=== PATIENT | male | born 2005 | race Caucasian/White ===

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

== ENCOUNTER → 2023-08-14 09:13 | Outpatient (BNVA) | payer MEDICAID, SELFPAY | PROVIDERS: PCP Registered Nurse; Referring Provider Registered Nurse; Visit Provider Physician Assistant | DX: M79.641 Pain in right hand (principal); M79.642 Pain in left hand | CPT/HCPCS: 73130 ==

== ENCOUNTER → 2023-10-09 08:18 | Outpatient (BNVA) | payer MEDICAID, SELFPAY | PROVIDERS: PCP Registered Nurse; Visit Provider Physician Assistant | DX: G56.01 Carpal tunnel syndrome, right upper limb; R29.898 Other symptoms and signs involving the musculoskeletal system; G56.21 Lesion of ulnar nerve, right upper limb | CPT/HCPCS: 99203 ==

== ENCOUNTER 2023-11-17 07:15 | Outpatient (CLI) | payer MEDICAID, SELFPAY ==
--- NOTE | 2023-11-17 07:15 | MR_ITS ---
WS: [id number] MRI OF THE RIGHT HAND WITHOUT GADOLINIUM ENHANCEMENT. INDICATION: Pain in palm of hand TECHNIQUE: Axial T1, axial T2, coronal T1, coronal STIR, sagittal T2 fat-sat, coronal 3D FSPGR FINDINGS: Normal anatomic alignment. Normal bone marrow signal in the carpal bones and metacarpals. N o acute fractures. Normal extensor retinaculum and extensor compartment tendons. There is volar bowing of the flexor retinaculum which can be seen with carpal tunnel syndrome. In ad dition, increased signal in the median nerve also compatible with carpal tunnel syndrome. Trace flexo r tenosynovitis. Small amount of flexor tendinopathy. Flattening of the median nerve at the entrance and exit of the carpal tunnel. Abductor pollicis brevis is normal in appearance. CSA median nerve at the level of the pisiform approximately 16.73 sq mm compatible with carpal tunnel syndrome MR/MR hand RT wo con* [id number] IMPRESSION: 1. Above findings suspicious for carpal tunnel syndrome. 2. Increased T2 signal normality involving the median nerve with mild flatteni ng at the level of the hamate. Palmar bowing of the flexor retinaculum with mil d flexor tenosynovitis and flexor tendinopathy. Visual crowding of the carpal t unnel. 3. CSA of the median nerve at the level of pisiform 16.73 sq mm compatible wit h carpal tunnel syndrome in the appropriate clinical setting
== END 2023-11-17 07:16 | disposition home or self-care (01) ==
LOC: RAD 07:15
PROVIDERS: PCP Registered Nurse; Visit Provider Physician Assistant
DX: M65.841 Other synovitis and tenosynovitis, right hand (principal); R29.898 Other symptoms and signs involving the musculoskeletal system; M77.8 Other enthesopathies, not elsewhere classified
CPT/HCPCS: 73218

== ENCOUNTER → 2023-12-31 13:13 | Outpatient (BNVA) | payer MEDICAID, SELFPAY | PROVIDERS: PCP Registered Nurse; Visit Provider Student in an Organized Health Care Education/Training Program | DX: G56.01 Carpal tunnel syndrome, right upper limb (principal) | CPT/HCPCS: 99214 ==

== ENCOUNTER 2024-02-17 10:32 | Day surgery (SDC) | payer BC, MEDICAID, SELFPAY ==
[2024-02-17] VITALS (9 sets, daily range): BP systolic 99–137; BP diastolic 58–74; PULSE 58–71; RESP 12–19; TEMP 36.1–36.8; O2SAT 91–100; BMI 33.0
--- NOTE | 2024-02-17 11:25 | ANES.PREANE2 ---
Pre-Anesthetic Assessment Height/Weight: Height 5 ft 10 in Weight 230 lb Temp Pulse Resp BP Pulse Ox O2 Del Method 97.5 F L 62 18 137/74 100 Room Air 02/17/24 11:16 02/17/24 11:16 02/17/24 11:16 02/17/24 11:16 02/17/24 11:16 02/17/24 11:16 Operation Date: 02/17/24 12:15 Proposed Procedures p Carpal Tunnel Release Carpal Tunnel Release With Synovial Biopsy(Right) - Ron Reed DO Last intake: Intake Last Liquid Date 02/16/24 Last Liquid Time 23:45 Last Solid Date 02/16/24 Last Solid Time 23:45 Social Tobacco and No alcohol Exam alert, oriented x 3, clear to auscultation bilaterally and regular rate & rhythm Airway Submandibular: within normal limits Cervical ROM: within normal limits Mallampati: Class II Dentition: full Anesthetic Plan ASA status: 2 Anesthesia: MAC Other: No prior issues with anesthesia, prior T&A as a child NPO since midnight Current smoker Allergy to penicillin Patient denies any cardiac issues METs greater than 4 Plan for MAC anesthetic with local via surgeon Medications/Allergies Home Medications Medication Instructions Recorded Confirmed Last Taken Type ondansetron 4 mg disintegrating 4 mg PO Q8H PRN nausea and 02/17/24 Unknown Rx tablet vomiting 3 days #9 tabs tramadol 50 mg tablet 50 mg PO Q6H PRN pain #20 tabs 02/17/24 Unknown Rx Allergies Allergy/AdvReac Type Severity Reaction Status Date / Time penicillin G Allergy UNKNOWN Verified 12/31/23 13:18 PFSH Anesthesia Medical History Right ureteral stone Family History Mother Kidney stones Cancer CERVICAL Grandfather Kidney stones Cancer COLON,ESOPHAGEAL Social History Smoking and tobacco/nicotine status: current every day tobacco/nicotine user (VAPE) e-cigarettes E-Cigarette Details: vaporizer device Alcohol intake: current Alcohol intake frequency: few times a month Substance/Drug Use: never Current gender identity: Male Data Anesthesia Cardiac Studies: No Data to Display
--- NOTE | 2024-02-17 11:43 | P.HP_ITS ---
Same Day Surgery H&P Indication for Procedure/HPI DATE OF PROCEDURE: February 17, 2024 CHIEF COMPLAINT/INDICATIONFOR SURGICAL PROCEDURE: Right carpal tunnel syndrome PREOP DIAGNOSIS: Right carpal tunnel syndrome PLANNED PROCEDURE: Operation Date: 02/17/24 12:15 Proposed Procedures p Carpal Tunnel Release Carpal Tunnel Release With Synovial Biopsy(Right) - Ron Reed DO Medications/Allergies* Allergies/Adverse Reactions Allergy/AdvReac Type Severity Reaction Status Date / Time penicillin G Allergy UNKNOWN Verified 12/31/23 13:18 Pertinent History/Comorbid Conditions* Medical History (Updated 10/09/23 @ 09:22 by SHEILA Desouza) Right ureteral stone Family History (Updated 04/15/21 @ 09:55 by CASIE Baldwin) Kidney stones Mother Grandfather Cancer Mother CERVICAL Grandfather COLON,ESOPHAGEAL Social History Smoking and tobacco/nicotine status: current every day tobacco/nicotine user (VAPE) e-cigarettes E-Cigarette Details: vaporizer device Alcohol intake: current Alcohol intake frequency: few times a month Substance/Drug Use: never Current gender identity: Male Pertinent Exam Findings alert, oriented x 3, operative site marked and procedure specific exam findings Please refer to detailed orthopedic examination on 12/25/2023 Bilateral Hand exam-tenderness to palm and thenar region of hand. Positive median nerve compression test at the wrist positive Tinel's and positive Phalen's test. Mild thenar weakness, no thenar atrophy. Full range of motion in fingers and wrist and fingers are warm and well-perfused with normal cap refill under 2 seconds. Radial pulse 2+, No intrinsic atrophy noted. All patient's exam findings are more significant on the right side. Bilateral Elbow exam-mildly Positive Tinel's test and Positive elbow flexion test. Recommendations Surgery/Procedure today Other Plans: Plan to proceed to the OR today for right carpal tunnel release with synovial biopsy Patient understands the ins and outs procedure risk benefits complication alternatives to surgery. Once again we did review continued nonoperative versus operative intervention as well as discussed roles of cortisone injection but at this point time through shared decision making with patient as well as with mother would like to proceed with a right carpal tunnel release as he does have findings consistent with this on examination as well as his MRI findings as well. They would like a more permanent relief of symptomatology given his young age I will go ahead and perform a synovial biopsy of the carpal tunnel in order to hopefully rule out any further causes of carpal tunnel in such a younger pa tient. They understand agree with current plan. Questions answered. Will proceed with right carpal tunnel release with synovial biopsy today. Coding Level of Care Code Acute Code for Zoeg Fwjill
[2024-02-17] MEDS: acetaminophen 1,000 MG/100 ML PIGGYBACK 400 MG IV (11:50)
[2024-02-17] MEDS: scopolamine 1.5 Patch 1 PATCH TRANSDERMA (11:52)
[2024-02-17] MEDS: ketorolac 30 mg/mL INJ IVP (11:52)
[2024-02-17] MEDS: sodium chloride 0.9% 1,000 ML 30 ML IV (11:56)
[2024-02-17] MEDS: clindamycin 900 MG/50 ML PREMIX 100 MG IV (12:00)
[2024-02-17] MEDS: lidocaine-epi 1% PF 1:200,000 30 mL SDV 5 ML INJECTION (12:40)
[2024-02-17] MEDS: ROPivacaine 0.5% SDV 30 mL 25 MG INJECTION (12:40)
--- NOTE | 2024-02-17 12:41 | W.PM.BPON ---
Date of Procedure: 02/17/2024 Surgeon: Ron Reed DO Nursing Executive(s): Robson Reed PA-C Procedure(s) performed: Right carpal tunnel release with synovial biopsy Findings of the procedure(s): Patient was found to have right carpal tunnel syndrome with inflamed tenosynovium. Given his young age I did undergo a synovial biopsy with a small piece of the transverse carpal ligament as well as of tenosynovium along one of the flexor tendon sheaths. This was sent for pathology permanent specimen as well as should be sent for a Congo red stain to rule out possible amyloidosis Estimated blood loss: 2 mL Specimen(s) removed: Synovial biopsy of the carpal tunnel contents including a piece of transverse carpal ligament as well as tenosynovium along one of the flexor tendon sheath Post-operative diagnosis: Right carpal tunnel syndrome
--- NOTE | 2024-02-17 12:43 | PM.OP ---
Operative Report Date of procedure: February 17, 2024 Surgeon: Ron Reed DO Pulling Machine Operator: Robson Reed PA-C: PA was necessary for assistance in this case with hand positioning to execute the procedure, retraction and protection of neurovascular structures as well as to assist with wound closure and dressing application. Procedure: Preop Diagnosis: Right Carpal Tunnel Syndrome Post-op diagnosis: Same Procedure done: 1. Right carpal tunnel release Surgeon: Ron Reed DO Anesthesia: MAC (Local) Estimated blood loss: 2 mL Tourniquet time 19 minutes Specimens: I did excise and perform a tenosynovectomy of one of the flexor tendon sheaths within the carpal tunnel as well as took an excision of the transverse carpal ligament and sent for pathology for definitive specimen as well as for Congo red staining for amyloidosis IV fluids: See anesthesia record Complications: None Findings: See operative report narrative Condition: stable Disposition: same day Brief History: Patient is a pleasant 18 year-old male with right carpal tunnel syndrome. Patient has been worked up in the outpatient setting findings and physical examination consistent with this. Nerve conduction studies have been negative he did have an MRI which confirmed crowding of the carpal tunnel and consistent findings of carpal tunnel with this. We detailed out his treatment options in detail and at this point time given he has been struggling this for quite some time patient mother would like to pursue surgical intervention to have the carpal tunnel release. I did express with his young age this is definitely a more uncommon diagnosis at his age but he does have classic exam findings as a result we talked about getting synovial biopsy while performing the right carpal tunnel release and they agree to proceed with this. We detailed out patient's risk benefits complication alternatives with surgical and nonsurgical treatment options. Through shared decision making, patient agrees to proceed with surgical intervention of the right carpal tunnel release with synovial biopsy. Patient understands and agrees with current plan. All questions answered. Patient elects to proceed with surgical intervention. Procedure: Patient seen and evaluated in the preoperative holding area. Consent was reviewed and signed with patient. Correct extremity was marked. Patient was seen evaluated by the anesthesia department once cleared for surgery was brought back to the operative suite. Patient was kept on [facility] in supine position all bony prominences were well-padded patient properly secured to the bed. Right upper extremity was then placed onto an armboard. A nonsterile tourniquet was applied to the Right upper arm. Patient underwent anesthesia per the anesthesia department. Patient's Right upper extremity was then prepped and draped in standard orthopedic fashion. Final timeout performed. Patient received appropriate preoperative antibiotics. Under sterile aseptic technique patient received local anesthesia over the preplanned carpal tunnel incision site. Esmarch was used to exsanguinate the Right upper extremity and tourniquet was insufflated to 250 mmHg. A standard mini open Right carpal tunnel incision was made. Starting distally at Gutierrez's cardinal line in line with the fourth ray extending proximally distal to the wrist crease centered over the carpal tunnel. Sharp scalpel incision was made through skin and subcutaneous tissue. Self-retaining retractor was placed and the palmar fascia was identified. This was then split longitudinally and direct visualization of the transverse carpal ligament was then made. I then utilizing scalpel feathered through the transverse carpal ligament until I entered the floor of the transverse carpal tunnel ligament into the carpal tunnel. Next I switched to dissection scissors and completed my release of the transverse carpal ligament distally with care to protect the recurrent motor branch. I completely released into the palmar fat and until no entrapment was noted distally. Care was made to protect the superficial palmar arch during my distal dissection. Next I utilized a nasal speculum placed on top of the transverse carpal ligament and utilize this to retract the subcutaneous fat and tissue and under direct loupe magnification was able to identify the transverse carpal ligament. Next I then protected the contents of the carpal tunnel and subsequently utilizing dissection scissors under loupe magnification completely released the transverse carpal ligament proximally into the antebrachial fascia. Care was made to protect the palmar cutaneous branch by keeping my scissors curved ulnarly. Once completely released, I then placed my [place] and had appropriate decompression of the carpal tunnel proximally as well as distally. I then inspected the contents of the carpal tunnel which showed an hourglass shape of the median nerve showing its compression. No masses were noted. Tendons appeared healthy. At this point I then subsequently performed the synovial biopsy and mobilized the median nerve radially and subsequently performed a tenosynovectomy of one of the flexor tendon to have appropriate synovial specimen and then subsequently the radial leaflet of the transverse carpal ligament I cut a small piece of this out and sent this as well for a synovial biopsy of the carpal tunnel. This will to be sent for the for formal specimen as well as Congo red staining ruling out possibility of amyloidosis. This was then sent off the back table to path. Wound was then thoroughly irrigated. Tourniquet deflated. Hemostasis satisfactory with bipolar electrocautery. I then closed the incision with interrupted nylon stitches. Xeroform 4 x 4's and a bulky soft dressing was applied. Patient was then awakened from anesthesia and taken to PACU in stable condition. Patient tolerated procedure without complications. Disposition: Patient taken to PACU in stable condition recovering well. Dressing clean dry and intact. Patient will receive appropriate discharge instructions as well as pain medication postoperatively. Patient to follow-up with orthopedics in the office in 2 weeks. They understand they may be weightbearing as tolerated to the right hand. Patient should keep incision clean dry and intact. Patient understands if any questions or concerns may contact the office.
--- NOTE | 2024-02-17 12:51 | P.PCN_ITS ---
PACU note Narrative: Patient is a 18-year-old male just underwent a right carpal tunnel release. Patient transferred to PACU in stable condition. Pain is well controlled. Dressing on hand is dry and in place. Patient's fingers are warm and well- perfused. Patient can wiggle fingers. normal cap refill under 2 seconds. Patient has normal elbow range of motion. Unable to assess sensation due to residual localized anesthetic. Exam: awake Disposition: discharged
[2024-02-17] MEDS: TRAMadol 50 mg Tablet PO (13:24)
--- NOTE | 2024-02-17 13:52 | ANE.PACU2 ---
Inpatient post-anesthesia follow up: Airway intact: Yes Vital signs: Temperature 97 F Pulse Rate 68 Respiratory Rate 18 Blood Pressure 106/61 Pulse Oximetry 94 Oxygen Delivery Me thod Room Air Oxygen Flow Rate Fraction of Inspir ed Oxygen Hydration adequate: Yes Nausea and vomiting: No Pain level: 1 Mental status: Baseline
== END 2024-02-17 13:52 | disposition home or self-care (01) ==
PROVIDERS: PCP Registered Nurse; Visit Provider Student in an Organized Health Care Education/Training Program
PROC: (CPT 64721; principal; 2024-02-17 12:05)
DX: G56.01 Carpal tunnel syndrome, right upper limb (principal); F17.200 Nicotine dependence, unspecified, uncomplicated
CPT/HCPCS: 64721; 88313; J0131; J1885; J2250; J2704; J2795; J3010; J3490; J7030

== ENCOUNTER → 2024-03-04 12:11 | Outpatient (BNVA) | payer BC, MEDICAID, SELFPAY | PROVIDERS: PCP Registered Nurse; Visit Provider Registered Nurse | DX: E11.9 Type 2 diabetes mellitus without complications (principal); H53.9 Unspecified visual disturbance; H57.051 Tonic pupil, right eye | CPT/HCPCS: 80053; 83036; 85025 ==

== ENCOUNTER 2024-03-08 13:55 | Outpatient (RCR) | payer BC, MEDICAID, SELFPAY | END 2024-03-14 23:59 | disposition home or self-care (01) | LOC: SOT 13:55 | PROVIDERS: PCP Registered Nurse; Visit Provider Physician Assistant | DX: G56.00 Carpal tunnel syndrome, unspecified upper limb (principal) | CPT/HCPCS: 97110; 97165; 97530 ==

== ENCOUNTER 2024-03-11 07:00 | Outpatient (CLI) | payer BC, MEDICAID, SELFPAY ==
--- NOTE | 2024-03-11 07:00 | CT_ITS ---
WS: [id number] CT HEAD TECHNIQUE: Noncontrast CT of the head obtained from the skullbase to the vertex. CLINICAL INFORMATION: H53.9 - Unspecified visual disturbance COMPARISON: None. DLP: 1125.[address] scans at [facility] use at least one of these dose optimization techniques: automated e xposure control; mA and/or kV adjustment per patient size (includes targeted exams where dose is matc hed to clinical indication); or iterative reconstruction. FINDINGS: No evidence of intracranial hemorrhage or mass effect. Ventricular system and basal cisterns are hernandez nt. No extra-axial fluid collections. No evidence of mass or mass effect. Normal [place]white different iation. 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 This could be follow ed up with MRI. Mild crowding of the foramen magnum. Fourth ventricle appears normal. No hydrocephalu s. Paranasal sinuses and mastoid air cells are well aerated. .Normal visualized soft tissues. CT/CT head wo con* [id number] IMPRESSION: 1. No evidence of intracranial hemorrhage or mass effect. 2. 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 Th is can be followed up with MRI. No hydrocephalus. 3. Otherwise no acute intracranial findings.
== END 2024-03-11 07:01 | disposition home or self-care (01) ==
PROVIDERS: PCP Registered Nurse; Visit Provider Registered Nurse
DX: Q07.00 Arnold-Chiari syndrome without spina bifida or hydrocephalus (principal); H53.9 Unspecified visual disturbance; H57.051 Tonic pupil, right eye
CPT/HCPCS: 70450

== ENCOUNTER 2024-05-19 05:54 | Day surgery (SDC) | payer BC, MEDICAID, SELFPAY ==
[2024-05-19] VITALS (13 sets, daily range): BP systolic 129–166; BP diastolic 75–114; PULSE 62–90; RESP 16–20; TEMP 36.3–36.4; O2SAT 92–98
[2024-05-19] MEDS: sodium chloride 0.9% 1,000 ML 30 ML IV (06:13)
[2024-05-19] MEDS: ketorolac 30 mg/mL INJ IVP (06:17)
[2024-05-19] MEDS: acetaminophen 1,000 MG/100 ML PIGGYBACK 400 MG IV (06:17)
[2024-05-19] MEDS: scopolamine 1.5 Patch 1 PATCH TRANSDERMA (06:19)
--- NOTE | 2024-05-19 06:30 | ANES.PREANE2 ---
Pre-Anesthetic Assessment Height/Weight: Height 5 ft 10 in Weight 245 lb Temp Pulse Resp BP Pulse Ox O2 Del Method 97.5 F L 84 18 144/80 98 Room Air 05/19/24 06:03 05/19/24 06:03 05/19/24 06:03 05/19/24 06:03 05/19/24 06:03 05/19/24 06:03 Preop Diagnosis: Cubital tunnel syndrome Operation Date: 05/19/24 07:00 Proposed Procedures p Cubital Tunnel Release(Right) - Ron Reed DO s Ulnar Nerve Transposition(Right) - Ron Sawantatt, DO Was Beta Lorraine taken within 24 hours: N/A Was Clonidine taken within 24 hours: N/A Last intake: Intake Last Liquid Date 05/18/24 Last Liquid Time 22:00 Last Solid Date 05/18/24 Last Solid Time 18:00 Social Tobacco and No alcohol Exam alert, oriented x 3, clear to auscultation bilaterally and regular rate & rhythm Airway Submandibular: within normal limits Cervical ROM: within normal limits Mallampati: Class I Dentition: full Comments: Comments: Rodriguez Anesthetic Plan ASA status: 2 Anesthesia: General Other: No prior issues with anesthesia NPO since yesterday Current smoker Denies any cardiac issues. 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 Currently asymptomatic, needs to follow up with neurology METs greater than 4 Plan for general anesthesia with preop nerve block Medications/Allergies Home Medications Medication Instructions Recorded Confirmed Last Taken Type naproxen sodium 220 mg tablet 220 mg PO Q12H PRN Pain 05/18/24 05/19/24 05/18/24 History (Aleve) Allergies Allergy/AdvReac Type Severity Reaction Status Date / Time penicillin G Allergy UNKNOWN Verified 04/15/24 08:33 Current Medications Generic Name Dose Route Start Last Admin Trade Name Freq PRN Reason Stop Dose Admin Sodium Chloride 1,000 mls @ 30 mls/hr 05/19/24 06:00 05/19/24 06:13 Sodium Chloride 0.9% IV 05/20/24 05:59 30 mls/hr .Q24H LOUISA Administration PFSH Anesthesia Medical History Right ureteral stone Family History Mother Kidney stones Cancer CERVICAL Grandfather Kidney stones Cancer COLON,ESOPHAGEAL Social History Smoking and tobacco/nicotine status: current every day tobacco/nicotine user (VAPE) e-cigarettes E-Cigarette Details: vaporizer device Alcohol intake: current Alcohol intake frequency: few times a month Substance/Drug Use: never Current gender identity: Male Data Anesthesia Cardiac Studies: No Data to Display
--- NOTE | 2024-05-19 06:55 | ANES.PROC ---
Anesthesia Procedures Procedure/Date: 05/19/24 Nerve Block ^: Nerve Block 1: Main Anesthesia: other (100 mcg fentanyl, 2 mg Versed given) Time Out Performed: Yes Consent: requested by attending/covering physician and from patient Nerve block location: supraclavicular Anesthesia monitors applied: pulse oximetry, EKG, BP cuff and oxygen Nerve block position: supine Anesthetic Used: ropivicaine 0.5% Amount of anesthesia used (mL): 30 Nerve Stimulator Used?: Yes Interscalene/Femoral BLK: other needle (pjunk 4inch) Injection: neg aspiration of heme Patient Tolerated Procedure: well Complications: none
--- NOTE | 2024-05-19 06:56 | W.PM.OPSFHP ---
Same Day Surgery H&P Indication for Procedure/HPI DATE OF PROCEDURE: May 19, 2024 CHIEF COMPLAINT/INDICATIONFOR SURGICAL PROCEDURE: Right cubital tunnel syndrome PREOP DIAGNOSIS: Right cubital tunnel syndrome PLANNED PROCEDURE: Operation Date: 05/19/24 07:00 Proposed Procedures p Cubital Tunnel Release(Right) - Ron Derek, DO s Ulnar Nerve Transposition(Right) - Ron Derek, DO Medications/Allergies* Home Medications Medication Instructions Recorded Confirmed Type naproxen sodium 220 mg tablet 220 mg PO Q12H PRN Pain 05/18/24 05/19/24 History (Aleve) Allergies/Adverse Reactions Allergy/AdvReac Type Severity Reaction Status Date / Time penicillin G Allergy UNKNOWN Verified 04/15/24 08:33 Current Medications: Generic Name Dose Route Start Last Admin Trade Name Freq PRN Reason Stop Dose Admin Sodium Chloride 1,000 mls @ 30 mls/hr 05/19/24 06:00 05/19/24 06:13 Sodium Chloride 0.9% IV 05/20/24 05:59 30 mls/hr .Q24H LOUISA Administration Pertinent History/Comorbid Conditions* Medical History (Updated 03/20/24 @ 17:12 by CARLOTA Lopez) Right ureteral stone Family History (Updated 04/15/21 @ 09:55 by CASIE Baldwin) Kidney stones Mother Grandfather Cancer Mother CERVICAL Grandfather COLON,ESOPHAGEAL Social History Smoking and tobacco/nicotine status: current every day tobacco/nicotine user (VAPE) e-cigarettes E-Cigarette Details: vaporizer device Alcohol intake: current Alcohol intake frequency: few times a month Substance/Drug Use: never Current gender identity: Male Pertinent Exam Findings alert, oriented x 3, operative site marked and procedure specific exam findings Please refer to detailed orthopedic examination on 04/15/2024 patient had received regional block to the right upper extremity today.: Right hand?surgical incision site is healing well no signs of infection noted. Scar present. No erythema, warmth or swelling noted. Full range of motion in fingers and wrist and fingers are warm and well-perfused with normal cap refill under 2 seconds. Radial pulse 2+, Right Elbow exam-mildly Positive Tinel's test and Positive elbow flexion test. Recommendations Surgery/Procedure today Other Plans: Plan to proceed to the OR today for right cubital tunnel release with possible nerve transposition. Patient understands the ins and outs of procedure the risk benefits complication alternatives surgery and through shared decision-making elects proceed with surgical intervention. All questions answered at this time. Coding Level of Care Code Acute Code for Chg Fwd
[2024-05-19] MEDS: clindamycin 900 MG/50 ML PREMIX 100 MG IV (07:02)
--- NOTE | 2024-05-19 08:02 | W.PM.BPON ---
Date of Procedure: 05/19/2024 Surgeon: Ron Reed DO Career And Guidance Counselor(s): None Procedure(s) performed: Right cubital tunnel release Findings of the procedure(s): Patient found to have right cubital tunnel syndrome underwent procedure as planned without issues or complications Estimated blood loss: 5 mL Specimen(s) removed: None Post-operative diagnosis: Right cubital tunnel syndrome
--- NOTE | 2024-05-19 08:03 | PM.OP ---
Operative Report Date of procedure: May 19, 2024 Surgeon: Ron Reed DO Procedure: Preop Dx Right Cubital Tunnel syndrome Post-op diagnosis:? 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 He has had nerve studies in the past was negative we started off with a right carpal tunnel release surgery and he had good relief of his symptoms but still has residual/even more magnified cubital tunnel symptoms in the outpatient setting. in the office patient findings are consistent with this preoperative diagnosis. We had detailed discussion in office about continued nonoperative intervention versus operative intervention.? Patient understands the risk benefits complications alternatives to surgical and nonsurgical treatment options.? Patient understands the risks include but not limited to make it better, make it worse, infection, permanent injury to nerve, decreased function and sensation to the hand with persistent weakness.? Given these risks patient understands and agrees to proceed with current plan.? Patient elects to proceed with a right?cubital?tunnel release and possible ulnar nerve transposition. all questions answered. Procedure: Patient was seen and evaluated in the preoperative holding area.? The consent that was filled out in office was reviewed with patient and confirmed to be appropriate for right ulnar nerve?cubital?tunnel release and possible ulnar nerve transposition.? Correct extremity was then marked.? Patient was seen evaluated by the preoperative team as well as anesthesia department.? Once cleared for surgery patient was then taken to the operative suite and transported onto the operative table all bony prominences were well-padded and patient was secured to the table.? Right upper extremity was placed on an armboard.? Patient then underwent anesthesia per the anesthesia department. The right upper extremity tourniquet was applied. Patient's right upper extremity was then prepped and draped in standard orthopedic fashion.? This point a final timeout was performed. Patient received appropriate preop antibiotics. Esmarch tourniquet was used to exsanguinate the operative extremity and was insufflated to 250 mmHg.? Standard curvilinear incision was made centering over the ulnar nerve between the medial epicondyle and olecranon process.? Sharp scalpel excision through skin and subcutaneous tissue was performed.? Once I encountered subcutaneous tissue I then utilized dissection scissors to spread in the path of the [facility] and care was made to protect any nerve branches throughout this case.? I then utilized a scalpel to complete my dissection directly on over to the flexor pronator mass and elevated this fat tissue directly off of the fascia.? I started my dissection of the ulnar nerve the nerve proximally.? Once identified I then utilized Littler dissection scissors and decompress the nerve completely and proximally and utilized blunt dissection to make sure there was no entrapment proximally.? Once decompressed proximally I then traced the nerve distal through Beck's ligament and as it entered the FCU fascia aponeurosis and completed by decompression and ulnar nerve neurolysis distally.? The nerve was completely released in situ no areas of entrapment I was able to place my finger distally and proximally with no areas entrapment along the nerve.? At this point in time by in situ release was completed I then subsequently took the elbow through range of motion and no evidence of subluxation was noted. This completed my ulnar nerve decompression of the?cubital?tunnel. Wound bed was then thoroughly irrigated.? Tourniquet was deflated.? Maintained exact hemostasis with bipolar electrocautery.? As result the skin was reapproximated with interrupted Vicryl subcutaneous suture 3-0.? I next utilized a running horizontal mattress stitch with 3-0 nylon.? Extremity was then cleaned and the incision was then covered with Xeroform 4 x 4's ABD Curlex and soft roll and a bulky soft dressing with an Ry wrap.? Patient was then awakened from anesthesia and taken to PACU in stable condition. Disposition: Patient taken to PACU in stable condition.? Patient given appropriate discharge instructions as well as pain medication.? Patient will see ortho in office in 2 weeks.? pt understands? if they has any questions they can contact the office.
[2024-05-19] MEDS: fentaNYL 50 mcg/mL INJ 2mL IVP (08:30)
[2024-05-19] MEDS: TRAMadol 50 mg Tablet PO (09:08)
--- NOTE | 2024-05-19 09:30 | ANE.PACU2 ---
Inpatient post-anesthesia follow up: Airway intact: Yes Vital signs: Temperature 97.4 F Pulse Rate 75 Respiratory Rate 20 Blood Pressure 166/103 Pulse Oximetry 96 Oxygen Delivery Me thod Room Air Oxygen Flow Rate Fraction of Inspir ed Oxygen Hydration adequate: Yes Nausea and vomiting: No Pain level: 3 Mental status: Baseline
== END 2024-05-19 09:30 | disposition home or self-care (01) ==
PROVIDERS: PCP Registered Nurse; Visit Provider Student in an Organized Health Care Education/Training Program
PROC: (CPT 64718; principal; 2024-05-19 07:00)
DX: G56.21 Lesion of ulnar nerve, right upper limb (principal); F17.200 Nicotine dependence, unspecified, uncomplicated
CPT/HCPCS: 64718; J0131; J1100; J1885; J2405; J2704; J3010; J3490; J7030

== ENCOUNTER → 2024-07-15 09:57 | Outpatient (BNVA) | payer BC, MEDICAID, SELFPAY | PROVIDERS: PCP Registered Nurse; Visit Provider Physician Assistant | DX: M25.522 Pain in left elbow (principal); G56.02 Carpal tunnel syndrome, left upper limb; G56.22 Lesion of ulnar nerve, left upper limb | CPT/HCPCS: 73080 ==

== ENCOUNTER 2024-08-05 15:56 | Outpatient (CLI) | payer BC, MEDICAID, SELFPAY ==
--- NOTE | 2024-08-05 16:00 | MR_ITS ---
WS: [id number] MRI HEAD WITHOUT CONTRAST TECHNIQUE: Sagittal T1, T2 axial, T2 axial FLAIR, axial and coronal T1 images, axial susceptibility weighted imaging, axial diffusion weighted images, and coronal T2 images were obtained. CLINICAL INFORMATION: G93.5 - Compression of brain COMPARISON: CT 03/11/2024 FINDINGS: No evidence of restricted diffusion to suggest acute ischemia. Ventricular system and basal cisterns are patent. Chiari I malformation with cerebellar tonsils approximately 3.3 mm below the foramen magnum. No hydrocephalus. Normal fourth ventricle. Mild crowding at the foramen magnum. Tiny perivascular space in the caudate likely incidental. No surrounding gliosis. No other suspicious intracranial signal abnormalities. Otherwise normal posterior fossa. Normal vascular flow voids at the skull base. No extra-axial fluid collections. No evidence of mass or mass effect. Paranasal sinuses are well aerated. Normal posterior nasopharynx. Mastoid air cells are well aerated. No hemosiderin on the susceptibility weighted images. Normal optic chiasm and pituitary infundibulum. Temporal lobes and hippocampal formations are normal in appearance. MR/MR head wo con* [id number] IMPRESSION: 1. No evidence of restricted diffusion to suggest acute ischemia. 2. Tiny perivascular space in the LEFT caudate likely incidental. 3. No other suspicious intracranial signal abnormalities. 4. Chiari I malformation with cerebellar tonsils 3.3 mm below the foramen magn um. No hydrocephalus. Normal fourth ventricle. MRI cervical spine could be obta ined on an elective basis to exclude syrinx in the setting of Chiari I malforma tion especially if clinical concern for symptomatic Chiari. 5. No hemosiderin on the susceptibly weighted images. 6. No other suspicious findings.
== END 2024-08-05 15:57 | disposition home or self-care (01) ==
PROVIDERS: PCP Registered Nurse; Visit Provider Registered Nurse
DX: G93.5 Compression of brain (principal); R93.0 Abnormal findings on diagnostic imaging of skull and head, not elsewhere classified
CPT/HCPCS: 70551

== ENCOUNTER 2024-08-18 06:55 | Day surgery (SDC) | payer BC, MEDICAID, SELFPAY ==
[2024-08-18] VITALS (11 sets, daily range): BP systolic 108–177; BP diastolic 71–90; PULSE 58–72; RESP 16–18; TEMP 36.1–36.9; O2SAT 95–99; BMI 35.9
--- NOTE | 2024-08-18 07:55 | W.PM.OPSFHP ---
Same Day Surgery H&P Indication for Procedure/HPI DATE OF PROCEDURE: August 18, 2024 CHIEF COMPLAINT/INDICATIONFOR SURGICAL PROCEDURE: Left carpal tunnel syndrome, left cubital tunnel syndrome PREOP DIAGNOSIS: Left Carpal Tunnel syndrome, left cubital tunnel syndrome PLANNED PROCEDURE: Operation Date: 08/18/24 09:00 Proposed Procedures p Carpal Tunnel Release(Left) - Ron Derek, DO s Cubital Tunnel Release(Left) - Ron Derek, DO s Ulnar Nerve Transposition(Left) - Ron Derek, DO Medications/Allergies* Home Medications ?Medication ?Instructions ?Recorded ?Confirmed ?Type ascorbic acid (vitamin C) 500 mg 500 mg PO DAILY 08/17/24 08/17/24 History tablet (Vitamin C) Allergies/Adverse Reactions Allergy/AdvReac Type Severity Reaction Status Date / Time penicillin G Allergy UNKNOWN Verified 07/15/24 09:45 Pertinent History/Comorbid Conditions* Medical History (Updated 07/15/24 @ 11:19 by SHEILA Desouza) Right ureteral stone Family History (Updated 04/15/21 @ 09:55 by CASIE Baldwin) Kidney stones Mother Grandfather Cancer Mother CERVICAL Grandfather COLON,ESOPHAGEAL Social History Smoking and tobacco/nicotine status: current every day tobacco/nicotine user (VAPE) e-cigarettes E-Cigarette Details: vaporizer device Alcohol intake: current Alcohol intake frequency: few times a month Substance/Drug Use: never Current gender identity: Male Pertinent Exam Findings alert, oriented x 3, operative site marked and procedure specific exam findings Please refer to detailed orthopedic examination on 07/15/2024 listed below: Left Hand exam-positive Tinel's and positive Phalen's test. no thenar atrophy and mild thenar muscle weakness noted. Full range of motion in fingers and wrist and fingers are warm and well-perfused with normal cap refill under 2 seconds. Radial pulse 2+, intrinsic muscle weakness noted. Left Elbow exam-PositiveTinel's test and Positive elbow flexion test. Recommendations Surgery/Procedure today Other Plans: Plan to proceed to the OR today for left carpal tunnel release, left cubital tunnel release with possible nerve transposition. Patient understands the ins and outs procedure the risk benefits complication alternatives to surgery and through shared decision make elects proceed with surgical invention. All questions answered at this time. Patient is already had the right carpal done on the right cubital release done and is done extremely well and satisfied with his results this and ready to proceed with the left side patient understands agrees to current plan. Questions answered. Coding Level of Care Code Acute Code for Chg Yuridia
[2024-08-18] MEDS: acetaminophen 1,000 MG/100 ML PIGGYBACK 400 MG IV (08:08)
[2024-08-18] MEDS: sodium chloride 0.9% 1,000 ML 30 ML IV (08:09)
[2024-08-18] MEDS: scopolamine 1 mg PATCH 1 PATCH TRANSDERMA (08:28)
[2024-08-18] MEDS: ketorolac 30 mg/mL INJ IVP (08:33)
--- NOTE | 2024-08-18 08:36 | ANES.PREANE2 ---
Pre-Anesthetic Assessment Height/Weight: Height 1.78 m Weight 113.398 kg Temp Pulse Resp BP Pulse Ox O2 Del Method 98.5 F 64 16 124/72 97 Room Air 08/18/24 07:33 08/18/24 08:15 08/18/24 08:15 08/18/24 08:15 08/18/24 08:15 08/18/24 08:15 Preop Diagnosis: Left Carpal Tunnel syndrome, left cubital tunnel syndrome Operation Date: 08/18/24 09:00 Proposed Procedures p Carpal Tunnel Release(Left) - Ron Derek, DO s Cubital Tunnel Release(Left) - Ron Leslie, DO s Ulnar Nerve Transposition(Left) - Ron Derek, DO Familial anesthetic complications: No Was Beta Lorraine taken within 24 hours: N/A Was Clonidine taken within 24 hours: N/A Last intake: Intake Last Liquid Date 08/17/24 Last Liquid Time 22:30 Last Solid Date 08/17/24 Last Solid Time 18:00 Social No alcohol and No tobacco Exam alert, oriented x 3, clear to auscultation bilaterally and regular rate & rhythm Airway Mallampati: Class III Metabolic Morbid Obesity Neuropsych Chiari I malformation - remains asymptomatic. Did well with previous anesthesia in May Anesthetic Plan ASA status: 3 Anesthesia: General and Regional (specify below) Risk of > 500 ml blood loss (7ml/kg in children): No Medications/Allergies Home Medications ?Medication ?Instructions ?Recorded ?Confirmed ?Last Taken ?Type ascorbic acid (vitamin C) 500 mg 500 mg PO DAILY 08/17/24 08/17/24 08/17/24 History tablet (Vitamin C) Allergies Allergy/AdvReac Type Severity Reaction Status Date / Time penicillin G Allergy UNKNOWN Verified 07/15/24 09:45 Current Medications Generic Name Dose Route Start Last Admin Trade Name Freq PRN Reason Stop Dose Admin Sodium Chloride 1,000 mls @ 30 mls/hr 08/18/24 07:15 08/18/24 08:09 Sodium Chloride 0.9% IV 08/19/24 07:14 30 mls/hr .Q24H LOUISA Administration Scopolamine 1 patch 08/18/24 07:12 08/18/24 08:28 Scopolamine 1 Mg Patch TRANSDERMA 1 patch ONCE PRN Administration anesthetic related nausea PFSH Anesthesia Medical History Right ureteral stone Family History Mother Kidney stones Cancer CERVICAL Grandfather Kidney stones Cancer COLON,ESOPHAGEAL Social History Smoking and tobacco/nicotine status: current every day tobacco/nicotine user (VAPE) e-cigarettes E-Cigarette Details: vaporizer device Alcohol intake: current Alcohol intake frequency: few times a month Substance/Drug Use: never Current gender identity: Male Data Anesthesia Cardiac Studies: No Data to Display
--- NOTE | 2024-08-18 08:39 | ANES.PROC ---
Anesthesia Procedures Procedure/Date: 08/18/24 Nerve Block ^: Nerve Block 1: Main Anesthesia: general anesthesia Time Out Performed: Yes Consent: requested by attending/covering physician, from patient, from other, risks and benefits reviewed, patient agrees to proceed and emergency procedure Nerve block location: supraclavicular (L) Anesthesia monitors applied: pulse oximetry, EKG, BP cuff and oxygen Nerve block position: semi sitting Anesthetic Used: ropivicaine 0.5% (30 ml) and with decadron ( 4 mg) Ultrasound used to: recognize landmarks, visualize and ID brachial plexus and in supraclavicular region Nerve Stimulator Used?: No Interscalene/Femoral BLK: 4 stimuplex 21 g needle used for position and inplane approach, visualize local anesthetic spread and no vascular puncture identified Injection: neg aspiration of heme Patient Tolerated Procedure: well Complications: none
--- NOTE | 2024-08-18 08:40 | SUR.PREOP ---
08:20 left super clavicular nerve block performed by doctor Santillan, using 30mL of 0.5% ropivacaine. PT on engine monitor during showing NSR. PT tolerated procedure well.
[2024-08-18] MEDS: clindamycin 900 MG/50 ML PREMIX 100 MG IV (08:41)
--- NOTE | 2024-08-18 09:50 | P.OP_ITS ---
Operative Report Date of procedure: August 18, 2024 Surgeon: Ron Reed DO Procedure: Preoperative diagnosis: Left carpal tunnel syndrome, left cubital tunnel syndrome Postop Diagnosis: Same Procedure done: Left carpal tunnel release Left?cubital?tunnel tunnel release (ulnar nerve decompression at elbow) Surgeon: Ron Reed DO Estimated blood loss: 10 mL Tourniquet? 19 minutes IV fluids: 500 mL Complications: None Findings: See operative report narrative Condition: stable Disposition: same day Brief History: Patient's been seen and worked up in the outpatient setting and findings c onsistent with preoperative diagnosis.? Patient has Left carpal tunnel syndrome as well as Left?cubital?tunnel syndrome which has been worked up in the outpatient setting has physical exam findings consistent with this. Patient's had negative nerve conduction studies and subsequently after failed conservative treatment we talked about his options and with patient and mother and they had originally elected to proceed with a right carpal tunnel release as well as then a cubital tunnel release and he had great relief of his symptoms we did perform tenosynovial biopsy on the initial which was negative for any amyloidosis. At this point in time he is failed conservative treatment for the left side and he would like to proceed with a left carpal tunnel release and left cubital tunnel release with possible nerve transposition. As result through shared decision making agreed to proceed with? Left carpal tunnel and Left?cubital?tunnel release we talked about treatment options as far as nonoperative and operative intervention.? Understands risk benefits complication alternatives surgical nonsurgical treatment options.? Understanding his risks he agrees to proceed with surgical intervention. Understanding these risks he agrees to proceed with surgery.? Consent obtained in preop. Procedure: Patient seen evaluate in the preoperative holding area.? Consent was reviewed and signed with patient.? Correct extremity marked.? Patient seen evaluated by anesthesia department once cleared for surgery was then taken back to the operative suite placed in supine position all bony prominences well-padded patient properly secured to bed.? Left upper extremity placed onto armboard.? Nonsterile tourniquet applied Left upper arm.? Patient then underwent anesthesia per the anesthesia department.? Patient's Left upper extremity was then prepped and draped in standard orthopedic fashion.? Final timeout performed.? Patient received appropriate preoperative antibiotics. Esmarch was used exsanguinate the Left upper extremity.? Tourniquet was insufflated to 250 mmHg. I started with the carpal tunnel release first.? I made a standard open carpal tunnel release starting with the distal most extent in the palm at the Gutierrez's cardinal line and the incision line was made in line with the fourth ray and ended just distal to the wrist crease.? Sharp scalpel incision was made through skin and subcutaneous tissue I then utilizing self retainer then began to dissect with dissection scissors split longitudinally the palmar fascia.? Next I then utilizing my acute care nursing assistant Mariam retractors subsequently utilizing scalpel feathered through the palmaris brevis as well as through the transverse carpal ligament distally.? Once I encountered the floor of the transverse carpal ligament and entered into the carpal tunnel I then switched to dissection scissors.? Carefully released the distal extent of the transverse carpal ligament to the palmar fat.? Care was to protect the recurrent branch and not injured this during this part of the case.? Next I then placed a [place] underneath the transverse carpal ligament proximally to protect the nerve in the carpal tunnel contents.? And then I subsequently under loupe magnification utilize my dissection scissors to release the transverse carpal ligament into the antebrachial fascia under direct visualization with care to keep my scissors with a curved ulnarly away from the palmar cutaneous branch.? The transverse carpal was then completely decompressed proximally and a [place] was then placed both distally and proximally throughout the carpal tunnel and had complete decompression of the nerve.? The nerve did appear to have hourglass shape as it went through the carpal tunnel.? With significant irritation noted around the nerve.? No masses were noted within the contents of the carpal tunnel.? This completed the carpal tunnel release and then I subsequently irrigated the wound bed and placed a wet Ray-Mega into the incision for later closure. Next marked out the landmarks of the Left elbow of the medial epicondyle and olecranon and made a curvilinear incision following the course of the ulnar nerve at the medial aspect of the elbow.? Sharp scalpel incision was made through skin and subcutaneous tissue.? Next I switched to Littler dissection scissors and spread in plane of the medial antebrachial cutaneous nerve branching which was protected throughout this part of the dissection.? Then I directly came down over the fascia and identified the 2 heads of the FCU fascia and split this Left in the middle and subsequently identified my ulnar nerve distally.? This was then completely released distally under direct visualization and loupe magnification.? Once the nerve was then identified I then subsequently tracked this proximally and released this through Beck's ligament as well as complete decompression of the nerve proximally all the way past the intermuscular septum.? The nerve was completely released and decompressed both proximally and distally.? Ulnar nerve neurolysis performed and completed both proximally and distally with dissection scissors.? I then took the elbow through range of motion and there was no instability or subluxating of the ulnar nerve.? This completed?cubital?tunnel release.? ?Next the wound bed was thoroughly irrigated.? Tourniquet was deflated.? Hemostasis was satisfactory at the?cubital?tunnel release surgery site. I then inspected the carpal tunnel incision and this was found to have satisfactory hemostasis and all this was maintained through bipolar electrocautery.? At this point time I sequentially closed?cubital?tunnel site with 3-0 Vicryl suture in a running horizontal mattress nylon stitch.? ? The carpal tunnel release surgery was then closed in standard interrupted mattress fashion.? Dressing was Xeroform 4 x 4's ABD Curlex soft roll and an Ry wrap has a bulky soft dressing. Patient was then awakened from anesthesia and taken to PACU in stable condition. Disposition: Patient taken to PACU in stable condition recovering well.? Patient will receive appropriate discharge instructions as well as pain medication postoperatively.? We will follow-up with me in the office in 2 weeks.? Patient understands agrees with current plan.? All questions answered.? He understands if any questions or concerns and contact the office for follow-up appointment..
--- NOTE | 2024-08-18 09:50 | W.PM.BPON ---
Date of Procedure: 08/18/2024 Surgeon: Ron Reed DO Combination Man(s): None Procedure(s) performed: Left carpal tunnel release Left cubital tunnel release Findings of the procedure(s): Patient found to have left carpal tunnel syndrome and left cubital tunnel syndrome underwent procedure as planned without issues or complications Estimated blood loss: 10 mL Specimen(s) removed: None Post-operative diagnosis: Left carpal tunnel syndrome, left cubital tunnel syndrome
[2024-08-18] MEDS: HYDROcodone-acetaminophen 5-325 mg Tablet 1 TAB PO (10:52)
--- NOTE | 2024-08-18 11:30 | ANE.PACU2 ---
Inpatient post-anesthesia follow up: Airway intact: Yes Vital signs: Temperature 97.0 F Pulse Rate 58 Respiratory Rate 17 Blood Pressure 131/79 Pulse Oximetry 98 Oxygen Delivery Me thod Room Air Oxygen Flow Rate 6 Fraction of Inspir ed Oxygen Hydration adequate: Yes Nausea and vomiting: No Pain level: 1 Mental status: Baseline
== END 2024-08-18 11:32 | disposition home or self-care (01) ==
PROVIDERS: PCP Registered Nurse; Visit Provider Student in an Organized Health Care Education/Training Program
PROC: (CPT 64721; principal; 2024-08-18 09:00)
PROC: (CPT 64718; 2024-08-18 09:00)
DX: G56.02 Carpal tunnel syndrome, left upper limb (principal); G56.22 Lesion of ulnar nerve, left upper limb; Z88.0 Allergy status to penicillin; F17.290 Nicotine dependence, other tobacco product, uncomplicated
CPT/HCPCS: 64718; 64721; J0131; J1100; J1885; J2250; J2405; J2704; J2795; J3010; J3490; J7030

== ENCOUNTER 2024-08-19 20:44 | Emergency (ER) | payer BC, MEDICAID, SELFPAY ==
[2024-08-19 21:10] VITALS: BP 124/80; PULSE 65; RESP 18; TEMP 36.7; O2SAT 97
[2024-08-20 01:40] VITALS: BP 119/59; PULSE 52; RESP 17; O2SAT 94
--- NOTE | 2024-08-20 02:04 | CTR_ITS ---
PROCEDURE INFORMATION: Exam: CT Head Without Contrast Exam date and time: 08/20/2024 2:10 AM Age: 18 years old Clinical indication: Visual disturbance; C/O blurred vision. History of chiari 1 malformation. ; Additional info: Vision changes, known chiari malformation, TECHNIQUE: Imaging protocol: Computed tomography of the head without contrast. Radiation optimization: All CT scans at this facility use at least one of these dose optimization techniques: automated exposure control; mA and/or kV adjustment per patient size (includes targeted exams where dose is matched to clinical indication); or iterative reconstruction. COMPARISON: MR head wo con* [id number] 08/05/2024 4:06 PM RADIATION DOSE METRICS: Total DLP (mGy-cm): 1100.48 FINDINGS: Brain: Normal. No hemorrhage. Unremarkable white matter. No mass effect. By report the patient has a Chiari malformation but the foramen magnum is not visualized due to the area imaged on today's study. There does appear to be a Chiari 1 malformation on the study of 08/05/2024. Cerebral ventricles: No ventriculomegaly. Paranasal sinuses: Visualized sinuses are unremarkable. No fluid levels. Mastoid air cells: Visualized mastoid air cells are well aerated. Bones: Unremarkable. No acute fracture. Soft tissues: Unremarkable. CT/CT head wo con* [id number] IMPRESSION: No acute intracranial abnormality. No hydrocephalus. Chiari 1 malformation.
--- NOTE | 2024-08-20 02:17 | W.ED.EYEPROB ---
HPI - Eye Problem General: Chief complaint: Eye Problems Stated complaint: Had surgery 08/18/24 vision is [place] Time Seen by Provider: 08/20/24 02:04 History of Present Illness: Patient presents to the ER with complaints of blurry vision closer than 6 feet. Patient says after 6 feet he can see everything clear. He darted after he had surgery on his left arm yesterday. He has had this before when he had surgery on his right arm. And went away on its own. Patient called his family doctor told her to call the surgeon he tried calling the surgeon can get hold of them so decided to come here for further evaluation treatment. Patient has no other complaints at this time. Patient does note a Chiari malformation. Related Data Home Medications ?Medication ?Instructions ?Recorded ?Confirmed ascorbic acid (vitamin C) 500 mg 500 mg PO DAILY 08/17/24 08/17/24 tablet (Vitamin C) Previous Rx's ?Medication ?Instructions ?Recorded hydrocodone 5 mg-acetaminophen 325 1 tab PO Q6H PRN pain 7 days #28 08/18/24 mg tablet tabs ondansetron 4 mg disintegrating 4 mg PO Q8H Nausea and vomiting 08/18/24 tablet postop 3 days #9 tabs Allergies Allergy/AdvReac Type Severity Reaction Status Date / Time penicillin G Allergy UNKNOWN Verified 08/19/24 21:15 Review of Systems General: Reports: 10 or more systems reviewed and unremarkable except in HPI and below PFSH ED PFSH: Medical History Right ureteral stone Family History Mother Kidney stones Cancer CERVICAL Grandfather Kidney stones Cancer COLON,ESOPHAGEAL Social History Smoking and tobacco/nicotine status: current every day tobacco/nicotine user (VAPE) e-cigarettes E-Cigarette Details: vaporizer device Alcohol intake: current Alcohol intake frequency: few times a month Substance/Drug Use: never Current gender identity: Male Physical Exam Const: COMMON NORMALS: no acute distress, average body habitus, patient oriented x3, no limitations, healthy appearing, alert and well nourished HENMT: COMMON NORMALS: normocephalic, atraumatic, hearing grossly normal bilaterally, external ears normal, Normal external nose present, moist oral mucous membranes and oropharynx normal HEAD & SCALP: normocephalic and atraumatic NOSE: Normal external nose present EXTERNAL EAR: Yes external ears normal Eye: COMMON NORMALS: Equal, round and reactive pupils present, EOMs intact bilaterally, conjunctivae normal and no scleral icterus CONJUNCTIVA: Yes conjunctivae normal PUPIL: Yes Equal, round and reactive pupils present Neck/C-Spine: COMMON NORMALS: full ROM, no lymphadenopathy, supple, no meningeal signs, no JVD and Thyroid normal THYROID: Thyroid normal Chest: COMMONS NORMALS: normal inspection of the chest and normal palpation of entire chest wall Resp: COMMON NORMALS: normal respiratory effort, No retractions, No use of accessory muscles and clear to auscultation bilaterally AUSCULTATION: clear to auscultation bilaterally Cardio: COMMON NORMALS: no JVD, regular rate, regular rhythm, S1 normal heart sound present, S2 normal heart sound present, No gallops present (Cardio), No clicks present (Cardio), No murmurs present (Cardio) and No rub (Cardio) RATE: regular rate RHYTHM: regular rhythm HEART SOUNDS: S1 normal heart sound present and S2 normal heart sound present GI: COMMON NORMALS: Normal to inspection, nondistended, normoactive bowel sounds present, Soft to palpation, non-tender, No hepatosplenomegaly present and no masses PALPATION: Yes Soft to palpation and Yes No hepatosplenomegaly present Extremity: NARRATIVE EXTREMITY EXAM: Left upper extremity in immobilizer Neuro: COMMON NORMALS: patient oriented x3 SENSORIUM/ORIENTATION: Yes alert MENINGEAL SIGNS: Yes no meningeal signs Course Vital Signs: Vital signs: Vital Signs Temperature 98.0 F 08/19/24 21:10 Pulse Rate 52 L 08/20/24 01:40 Respiratory Rate 17 08/20/24 01:40 Blood Pressure 119/59 08/20/24 01:40 Pulse Oximetry 94 08/20/24 01:40 Oxygen Delivery Me thod Room Air 08/20/24 01:40 MDM - Eye Problem Medical Decision Making CT showed no acute intracranial abnormality, Chiari I malformation, these results were discussed with the patient. 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 Medical Records I reviewed the patient's medical records. Lab Data I reviewed the patient's lab results. Radiology Impressions Head CT 08/20/24 02:04 IMPRESSION: No acute intracranial abnormality. No hydrocephalus. Chiari 1 malformation. All radiology interpretation(s) finalized by discharge Discharge Plan Discharge Patient Disposition: Home Clinical Impression: Visual changes Condition: Stable Prescriptions: No Action ascorbic acid (vitamin C) [Vitamin C] 500 mg Tablet 500 mg PO DAILY hydrocodone-acetaminophen 5-325 mg tablet 1 tab PO Q6H PRN (Reason: pain) 7 Days Qty: 28 0RF ondansetron 4 mg tablet,disintegrating 4 mg PO Q8H 3 Days Qty: 9 0RF Discharge Orders: Discharge ED (Routine); Ordered 08/20/24 Ordered By: Galileo Crowe Referrals: Todd Adam FNP [Primary Care Provider] - 1 week Patient Instructions: Blurred Vision (ED) Activity Restrictions/Additional Instructions: The CT scan performed in the ER was unremarkable other than your Chiari malformation. 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 Activity restrictions/additional instructions: Thank you for choosing [facility] for your healthcare needs today. Please realize that you were seen in the emergency department and that we are providing you with an emergency medical screening exam and this may not be a complete and all exclusive of all testing and/or medical workup we may need to determine your element or severity of your illness. It is very important that you follow-up as instructed with your primary care provider or specialist for the additional evaluation and to discuss your medical treatment plan. You may return to the emergency department should you have concerns or if your condition changes or worsens in any way. Print Language: Mosotho Coding Level of Care Code ED Legal Manager for Raoul Shi
== END 2024-08-20 03:41 | disposition home or self-care (01) ==
PROVIDERS: Emergency Provider Emergency Medicine; PCP Registered Nurse
DX: H53.8 Other visual disturbances (principal)
CPT/HCPCS: 70450; 99284

== ENCOUNTER 2024-12-02 12:58 | Outpatient (CLI) | payer BC, MEDICAID, SELFPAY ==
--- NOTE | 2024-12-02 13:00 | MR_ITS ---
WS: [id number] MRA ANGIOGRAPHY [place] HISTORY: G93.5 - Compression of brain COMPARISON: None available. TECHNIQUE: 3-D MR angiography is performed of the [place]. All images are reviewed including source images. Small caliber but patent distal RIGHT vertebral artery. Dominant LEFT vertebral artery. Normal basilar artery and posterior cerebral arteries. No aneurysms. Intracranial portion of the internal carotid arteries are normal course and caliber. No significant atherosclerosis, stenosis or aneurysm identified. Middle and anterior cerebral arteries are both patent with no significant disease. Anterior communicating artery is also normal. Normal sized ventricles. No midline shift. MR/MR angio head wo con [id number] IMPRESSION: 1. Small caliber but patent distal RIGHT vertebral artery. 2. Normal [place]. No stenosis or aneurysm.
--- NOTE | 2024-12-02 13:05 | MR_ITS ---
WS: [id number] MRI CERVICAL SPINE with and without contrast HISTORY: SEVERE HEADACHES AND CHIARI MALFORMATION COMPARISON: CT head 08/20/2024 and MRI brain 08/05/2024 Technique: Multiplanar, multisequence noncontrast imaging of the cervical spine. Postcontrast imaging MultiHance 20 mL. Normal cervical alignment with no compression fracture or significant disc space narrowing. Short segment syrinx measuring 2.3 cm in length centered at the C6 vertebral body. No additional signal abnormality within the cord. Reidentified is mild ectopia of the cerebellar tonsils described as a Chiari malformation on prior studies. Small caliber posterior fossa. There is elongation of the fourth ventricle. No fourth ventricle enlargement. C2-C3: Normal. C3-C4: Normal. C4-C5: Normal. C5-C6: Normal. C6-C7: Normal. C7-T1: Normal. No discitis or osteomyelitis. No enhancement associated with the syrinx. MR/MR cervical spine wo/w [id number] IMPRESSION: 1. Short segment, 2.3 cm syrinx centered at the C6 level. 2. No enhancing masses associated with the syrinx. 3. Reidentified is the known mild Chiari I malformation.
[2024-12-02] MEDS: gadobenate dimeglumine 20 mL vial IV (13:56)
== END 2024-12-02 12:59 | disposition home or self-care (01) ==
PROVIDERS: PCP Registered Nurse; Visit Provider Psychiatry & Neurology Neurology
DX: G93.5 Compression of brain (principal); R51.0 Headache with orthostatic component, not elsewhere classified
CPT/HCPCS: 70544; 72156

== ENCOUNTER 2025-03-10 08:25 | Outpatient (CLI) | payer BC, MEDICAID, SELFPAY ==
--- NOTE | 2025-03-10 08:30 | FL_ITS ---
WS: [id number] Exam: FL barium swallow [id number] Date/Time of Exam: 03/10/2025 8:34 AM Reason For Exam: Dysphagia, GERD without esophagitis Fluoroscopy time: 1min [id number] minutes # of spot films: Oropharyngeal phase of swallowing was normal. The esophagus is smooth in contour. No indication of esophageal stricture or mass. Normal motility. The esophagus is not displaced. No hiatal hernia or gastroesophageal reflux. FL/FL barium swallow [id number] IMPRESSION: 1. Unremarkable esophagram.
== END 2025-03-10 08:26 | disposition home or self-care (01) ==
LOC: RAD 08:28
PROVIDERS: PCP Registered Nurse; Visit Provider Otolaryngology
DX: R13.14 Dysphagia, pharyngoesophageal phase (principal); K21.9 Gastro-esophageal reflux disease without esophagitis
CPT/HCPCS: 74220